=== PATIENT | female | born 1945 | race Two or more races ===

== ENCOUNTER 2018-11-01 05:20 | Day surgery (SDC) | payer OTHER ==
[~2018-11-01 05:20] MED LIST: ALLOPURINOL300 MG; AMILORIDE HCL5 MG PO; ASA-EC81 MG PO; FLECAINIDE ACE150 MG PO; FLUOXETINE HCL40 MG PO; HYDROCHLOROTHIA25 MG PO; METFORMIN HCL500 MG PO; TRAMADOL HCL7.5 GM PO; TRAZODONE HCL50 MG PO; ZESTRIL30 MG PO; ZOCOR20 MG PO; [UNRECOGNIZED DRUG - OTHER] PO; [UNRECOGNIZED DRUG - OTHER] PO
== END 2018-11-01 13:55 | disposition home or self-care (01) ==
LOC: CIR.AMB 05:20
DX: D12.9 Benign neoplasm of anus and anal canal (principal); A63.0 Anogenital (venereal) warts